=== PATIENT | female | born 1975 | race Asian ===

== ENCOUNTER → 2019-01-02 | Outpatient (CLI) | payer OTHER ==
[~2019-01-02] MED LIST: NONE PER PT
== END | disposition home or self-care (01) ==
LOC: CFH 07:11
PROVIDERS: ATTEND Nurse Practitioner Family
DX: N85.2 Hypertrophy of uterus (principal); D25.9 Leiomyoma of uterus, unspecified; N85.8 Other specified noninflammatory disorders of uterus; N85.9 Noninflammatory disorder of uterus, unspecified
CPT/HCPCS: 76700; 76830